=== PATIENT | male | born 1950 | race Caucasian/White ===

== ENCOUNTER 2025-04-06 06:30 | Day surgery (SDC) | payer MEDICARE, SELFPAY ==
[2025-04-06] VITALS (14 sets, daily range): BP systolic 93–130; BP diastolic 62–80; BMI 43.1
[2025-04-06] MEDS: LOW STRENGTH ASPIRIN 81 MG PO (07:45)
[2025-04-06] MEDS: NSS 385 ML IV (07:47)
[2025-04-06] MEDS: NSS 1000 IV (11:00)
[2025-04-06 11:52] LABS: ACT-LR - POC > 397 Seconds (116-155)
[2025-04-06 11:52] LABS: ACT-LR - POC > 397 Seconds (116-155)
[2025-04-06 11:52] LABS: ACT-LR - POC > 397 Seconds (116-155)
--- NOTE | 2025-04-06 12:26 | PTCARENOTE ---
Received patient from the labor representative at 1055 after PCI to the LAD via R radial artery. Right radial band in place, no bleeding or signs of hematoma noted. Bilateral arms are edematous and doppler used to confirm right radial pulse. Pulse ox 97% on the
right hand. Patient voided 300ml in the urinal, aware of bedrest x 2 hours. Monitoring VS, eating lunch now, oriented to the room and plan of care, call falcon in reach.
--- NOTE | 2025-04-06 12:40 | ITS.CL.ANGIO ---
[employer] Department Manager - Angioplasty
Angioplasty
Procedure Report:
LEFT HEART CATHETERIZATION
Date of Procedure: April 06, 2025
Procedures performed:
1: Coronary angiography
2: Left ventricular hemodynamic assessment
3: Physiologic lesion assessment of the left anterior descending artery
4: Percutaneous coronary intervention of the left anterior descending artery with placement of a 3.5 x 26 mm Enrique drug-eluting stent
Primary Care Provider: KIEL Paredes
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
INDICATION: The patient is a 75-year-old man with a past medical history significant for hypertension and coronary artery disease status post RCA stenting in 2022 who presents with new exertional shortness of breath and chest tightness suspicious
for unstable angina. The patient reports the symptoms are similar to how he felt prior to RCA stenting in 2022 and we elected to proceed with invasive angiography.
ACCESS: The patient was prepped and draped in usual sterile fashion. A 6 Gren[place] sheath was placed in the right radial artery using the Seldinger over the wire technique.
HEMODYNAMIC FINDINGS (mmHg):
LV(s/d,EDP): 115/6, 16
Ao(s/d,m): 116/72, 91
ANGIOGRAPHIC FINDINGS:
Single-plane Left Ventriculography in PLUMMER Projection: Not done. Normal LVEF by recent echo on 04/04/2025.
Coronary Angiography:
Dominance: Right
Left Main: Short, widely patent with mild distal tapering.
Left Anterior Descending: Very mild ostial 10 to 20% with no dampening with deep engagement of a 6 Grenadian catheter. The proximal LAD is widely patent. There is heavy calcification in the mid LAD particularly just beyond the major diagonal takeoff.
This area has a long area of 50 to 60% stenosis which appears angiographically unchanged from films in 2022. The major diagonal branch bifurcates into 2 medium caliber vessels. The diagonal has a smooth calcified mid 60% stenosis. The more
medial distal branch has a long 70% stenosis. The larger lateral branch is widely patent. All vessels have normal distal flow. The LAD beyond the calcific mid disease is widely patent and wraps around the apex to feed a significant portion of the
distal inferior wall.
Left Circumflex: The left circumflex is a large-caliber vessel that gives rise to 1 major obtuse marginal branch. This vessel has a smooth 30 to 40% stenosis which appears unchanged from prior angiography.
Right Coronary: The right coronary artery is a medium caliber dominant vessel that gives rise to several small posterior left ventricular branches and a small caliber posterior descending artery dual system. The previously placed mid RCA stent is
widely patent with no significant in-stent restenosis and normal flow in all distal vessels.
Physiologic lesion assessment of the left anterior descending artery: As I was expecting his symptoms to be driven by recurrent right coronary artery disease, I was not convinced that the left coronary disease was clearly driving his symptoms. The
branch vessel disease in the diagonal branch was clearly obstructive however I felt this would be somewhat challenging to treat given its relatively small vascular territory. Although the LAD disease did not appear clearly obstructive, I wanted to
be sure that this was truly the case and elected to perform physiologic lesion assessment. The patient was pretreated with aspirin. Unfractionated heparin was given. A 6 Grenadian XB 3.5 guiding catheter was used to engage the left main. A Omni
pressure wire was advanced with the transducer positioned in the normal-appearing distal LAD. The IFR was measured at 0.86, 0.87, and 0.87 consistent with flow-limiting disease. Pullback documented that this was due to the mid stenosis and this
was repeated several times to confirm the finding that this mid LAD disease was in fact flow-limiting. In light of this I elected to move to intervention.
Percutaneous Coronary Intervention (PCI): A Hi-Torque floppy wire was advanced down the LAD and predilation with a 2.25 x 20 mm balloon was used to predilate the LAD disease. This showed a significant waist at the heavily calcified segment. A 3.0
x 15 mm noncompliant balloon was then used at 18 nigel high pressure to successfully cracked the lesion. The patient noted recurrence of his symptoms with balloon inflations suggesting this was in fact the culprit. Next, a 3.5 x 26 mm [place]
drug-eluting stent was positioned at the LAD. I attempted in multiple views to avoid jailing the major diagonal branch given the fact that there was disease in this vessel that may also ultimately be treated if necessary percutaneously. The stent
was deployed at 16 nigel for 30 seconds. Contrast injection during balloon inflation unfortunately showed that the diagonal stent was jailed by the proximal portion of the LAD stent. Following stent deployment angiography revealed an outstanding
angiographic result with brisk flow into the jailed diagonal branch without any significant plaque shifting. Clopidogrel 600 mg oral loading dose was given in the room after the successful intervention.
FINAL RESULT: 0% in-stent residual stenosis with an excellent angiographic result and LISBET-3 flow in all vessels. Residual diagonal branch vessel disease. I would not treat this unless he was clearly having symptoms refractory to medical therapy.
This would require going through the side struts and the LAD stent which adds complexity to any percutaneous therapy.
Fluoroscopy Time (min): 25.9
Radiation Dose (mGy): 1404
DAP (Gy.cm2): 90
Closure device: None. A TR band was applied for hemostasis at the right wrist.
Complications: None.
ASSESSMENT:
1: Successful PCI of the LAD with placement of a drug-eluting stent in the LAD as described above.
2: Widely patent previously placed stent in the right coronary artery in 2022.
3: Residual obstructive branch vessel disease in the diagonal. Will plan to treat this medically.
CONCLUSIONS and RECOMMENDATIONS:
1: Routine post drug-eluting stent medical therapy with dual antiplatelet therapy uninterrupted for a year using aspirin 81 mg daily and clopidogrel 75 mg daily followed by aspirin 81 mg daily indefinitely.
2: Medical therapy for coronary artery disease, hypertension, and hyperlipidemia.
Jeronimo Fry M.D.
--- NOTE | 2025-04-06 13:45 | CM ---
Chart reviewed. Patient is independent of ADLS, lives with his in a [address], 2 [facility]A, 0 DME. Plan is for the patient to return home. CM to follow
[2025-04-06] MEDS: NEURONTIN 100 MG PO ×2 (15:37→21:46)
--- NOTE | 2025-04-06 23:21 | PTCARENOTE ---
Assumed care on pt at 1900, aaox3, resting in bed with minimal chest discomfort, denies SOB or c/o dizziness. SR on the tele monitor, HR 80's. R radial site dsg CDI, no bleeding or swelling noted, Pox 96% R hand. Call falcon within reach, POC ongoing.
[2025-04-07 02:55] VITALS: BP 119/62
[2025-04-07 03:15] VITALS: BMI 42.9
[2025-04-07 04:00] LABS: Hematocrit 39.4 % (39.0-52.0); Hemoglobin 13.4 g/dL (13.0-18.0); Mean Corp Hgb Conc. 34.0 g/dL (33.0-37.0); Mean Corpuscular Volume 87.4 fL (80.0-94.0); Platelet Count 245 10^3/uL (130-400); Red Cell Dist. Width 14.5 % (11.5-14.5)
[2025-04-07 04:22] LABS: Blood Urea Nitrogen 16 mg/dl (9-20); Calcium 8.7 mg/dl (8.4-10.2); Carbon Dioxide 25 mmol/L (22-30); Chloride 105 mmol/L (98-107); Estimated Creatinine Clearance 91 ml/min; Glucose 95 mg/dl (70-99); HDL Cholesterol 35 mg/dl; LDL Cholesterol, Calculated 62 mg/dl; Potassium 4.3 mmol/L (3.5-5.1); Sodium 136 mmol/L (135-145); Very Low Density Lipoprotein 38 mg/dl (0-30); eGFR > 60.00
--- NOTE | 2025-04-07 07:34 | W.PN.CARDCBS ---
Addendum entered and electronically signed by Art Lewis DO 04/07/25 15:11:
I saw and examined the patient 9AM 04/07/2025
The [employer] Management Sales Consultant's note was reviewed and I agree with the note.
Comment:
Plan:
Reviewed cath with pt
Cont DAPT s/p PCI
Cardiac rehab outpt
Outpt follow up with Dr Fry.
Stable for d/c
Original Note:
Today's Communication / Plan
-
post PCI LAD
DAPT
Cardiac rehab
home today
Impression / Plan
-
Primary Care Provider: KIEL Paredes
Primary Dimethylaniline Sulfator Operator: Jaxson Fry MD
75-year-old man with a past medical history significant for hypertension and coronary artery disease status post RCA stenting in 2022 who presents with new exertional shortness of breath and chest tightness suspicious for unstable angina. The
patient reports the symptoms are similar to how he felt prior to RCA stenting in 2022 and we elected to proceed with invasive angiography.
Impression:
CAD prior PCI RCA 2022
exertional chest pain and SOB
s/p PCI LAD 3.5x26mm [place] PATRICK 04/06/25
HTN
KENNETH
Peripheral neuropathy
Plan:
post PCI had some mild chest heaviness
much improved this am 'It just feels like something was done' does no worsen with exertion
Rad site stable
tele SR with occ PVC's
DAPT ASA/Plavix
continue metoprolol
LDL 62, continue atorvastatin 40mg, heart healthy diet reinforced
Cardiac rehab c/s
Activity restrictions reviewed
f/u Dr. Fry in 2-4 week
home today
Progress Note - Dimethylaniline Sulfator Operator
Subjective
Date of Service: April 07, 2025
denies sob, mild chest discomfort 1/10 not exacerbated with exertion, much improved from yesterday
Objective
Labs:
04/07/25 03:03
04/07/25 03:03
Labs
Hgb 13.4 g/dL (13.0-18.0) 04/07/25 03:03
Hct 39.4 % (39.0-52.0) 04/07/25 03:03
Plt Count 245 10^3/uL (130-400) 04/07/25 03:03
Sodium 136 mmol/L (135-145) 04/07/25 03:03
Potassium 4.3 mmol/L (3.5-5.1) 04/07/25 03:03
BUN 16 mg/dl (9-20) 04/07/25 03:03
Creatinine 0.9 mg/dL (0.7-1.3) 04/07/25 03:03
Glucose 95 mg/dl (70-99) 04/07/25 03:03
Vital Signs and I&O:
Vital Signs
Temp Pulse Resp BP Pulse Ox
97.3 F 87 16 119/62 98
04/07/25 02:55 04/07/25 04:45 04/07/25 02:55 04/07/25 02:55 04/07/25 02:55
Vital Signs
Temp Pulse Resp BP Pulse Ox
97.3 F 87 16 119/62 98
04/07/25 02:55 04/07/25 04:45 04/07/25 02:55 04/07/25 02:55 04/07/25 02:55
Intake & Output
04/05/25 04/06/25 04/07/25 04/08/25
06:59 06:59 06:59 06:59
Intake Total 1360 / 1360
Output Total 300 / 300
Balance 1060 / 1060
Physical Exam
Physical Exam
NAD, AOX3
S1, S2, RRR
CTAB, non labored, no wheeze
SNTND Bsx4
R rad site c/d/i no HT, good pulse
[2025-04-07 08:27] VITALS: BP 124/68
[2025-04-07] MEDS: LASIX 40 MG PO (08:38)
[2025-04-07] MEDS: ASPIR LOW (ENTERIC COATED) 81 MG PO (08:38)
[2025-04-07] MEDS: LIPITOR 40 MG PO (08:38)
[2025-04-07] MEDS: NEURONTIN 100 MG PO (08:39)
[2025-04-07] MEDS: TOPROL XL 25 MG PO (08:39)
[2025-04-07] MEDS: PLAVIX 75 MG PO (08:39)
[2025-04-07 11:56] VITALS: BP 129/67
--- NOTE | 2025-04-07 12:20 | PTCARENOTE ---
Discharge instructions reviewed with Pt and his , they expressed understanding.
--- NOTE | 2025-04-07 14:05 | W.DS.TRANS ---
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
-
Discharge Instructions:
Discharge Diagnosis/Procedures Angioplasty and stent to Left Anterior
Descending artery
Diet Low Cholesterol
Driving Restrictions No driving for 24 hours
Other Services Cardiac Rehab
Instructions:
Stand-Alone Forms: DC Instructions- Cath/EP Lab
Changes to Home Medications: Yes
Discharge Medications:
DC Medications w/original date entered in [facility]
aspirin 81 mg capsule 81 mg PO DAILY 04/06/25
atorvastatin 40 mg tablet 40 mg PO DAILY High Cholesterol 04/06/25
furosemide 40 mg tablet 40 mg PO DAILY Heart Disease/Condition 04/06/25
gabapentin 100 mg tablet 100 mg PO TID Pain 04/06/25
levofloxacin 500 mg tablet 500 mg PO DAILY ppx 04/06/25
metoprolol succinate 25 mg tablet,extended release 24 hr 25 mg PO DAILY Heart Disease/Condition 04/06/25
clopidogrel 75 mg tablet 75 mg PO DAILY #90 tabs 04/07/25
Home Medication Changes
new to plavix
Pending Results: No
== END 2025-04-07 12:40 | disposition home or self-care (01) ==
LOC: CATH 06:30
PROVIDERS: Nurse Practitioner; ATTENDING PHYSICIAN Internal Medicine Interventional Cardiology; FAMILY PHYSICIAN Nurse Practitioner Family
DX: I25.10 Atherosclerotic heart disease of native coronary artery without angina pectoris (principal); Z95.5 Presence of coronary angioplasty implant and graft; I10 Essential (primary) hypertension; G47.33 Obstructive sleep apnea (adult) (pediatric); G62.9 Polyneuropathy, unspecified; E78.5 Hyperlipidemia, unspecified; I49.3 Ventricular premature depolarization; Z79.02 Long term (current) use of antithrombotics/antiplatelets; Z79.82 Long term (current) use of aspirin; Z79.899 Other long term (current) drug therapy
CPT/HCPCS: 80048; 80061; 85027; 85347; 93005; 93458; 93799; C1725; C1769; C1874; C1887; C1894; C9600; Q9967

== ENCOUNTER 2025-05-27 16:05 | Outpatient (RCR) | payer MEDICARE, SELFPAY | END 2025-05-27 23:59 | disposition home or self-care (01) | LOC: CRHB 16:05 | PROVIDERS: ATTENDING PHYSICIAN Internal Medicine Interventional Cardiology | DX: I25.10 Atherosclerotic heart disease of native coronary artery without angina pectoris (principal); Z95.5 Presence of coronary angioplasty implant and graft | CPT/HCPCS: G0422; G0423 ==

== ENCOUNTER 2025-06-20 09:07 | Outpatient (RCR) | payer MEDICARE, SELFPAY | END 2025-06-20 23:59 | disposition home or self-care (01) | LOC: CRHB 09:07 | PROVIDERS: ATTENDING PHYSICIAN Internal Medicine Interventional Cardiology | DX: I25.10 Atherosclerotic heart disease of native coronary artery without angina pectoris (principal); Z95.5 Presence of coronary angioplasty implant and graft | CPT/HCPCS: G0422; G0423 ==

== ENCOUNTER 2025-06-27 07:41 | Outpatient (RCR) | payer MEDICARE, SELFPAY | END 2025-06-27 23:59 | disposition home or self-care (01) | LOC: CRHB 07:41 | PROVIDERS: ATTENDING PHYSICIAN Internal Medicine Interventional Cardiology | DX: I25.10 Atherosclerotic heart disease of native coronary artery without angina pectoris (principal); Z95.5 Presence of coronary angioplasty implant and graft | CPT/HCPCS: G0422; G0423 ==